=== PATIENT | male | born 1950 | race Caucasian/White ===

== ENCOUNTER 2016-06-06 06:40 | Inpatient (IN) | payer MEDICARE, OTHER ==
[2016-06-06] VITALS (13 sets, daily range): BP systolic 114–139; BP diastolic 69–83
[~2016-06-06] VITALS: Ht 203.2 cm; Wt 131.5 kg
[~2016-06-06 06:40] MED LIST: METOPROLOL SUCC50 MG ORAL; NITROFURANTOIN100 MG PO; RAPAFLO8 MG ORAL; TESTOSTERONE GEL TOPIC
--- NOTE | 2016-06-06 07:45 | Pre-Procedure Note/Attestation ---
Pre-Procedure Note/Attestation Complete Prior to Procedure Planned Procedure: not applicable Procedure Narrative: TURP Indications for Procedure Pre-Operative Diagnosis: retention bph Attestation I attest that I discussed the nature of the procedure; its benefits; risks and complications; and alternatives (and the risks and benefits of such alternatives ), prior to the procedure, with the patient (or the patient's legal retail service representative). I attest that, if there was a reasonable possibility of needing a blood transfusion, the patient (or the patient's legal retail service representative) was given the [facility] standardized written summary, pursuant to the Antonio Keara Blood Safety Act ([place] Health and Safety Code # 1645, as amended). I attest that I re-evaluated the patient just prior to the surgery and that there has been no change in the patient's H&P, except as documented below: Rick Solis MD Jun 06, 2016 07:44
[2016-06-06] MEDS ORDERED: ceFAZolin sod 1 GM in NS 55 ML IVPB ONE (08:00)
--- NOTE | 2016-06-06 08:57 | Anethesia Preoperative Eval ---
Anesthesia Pre-op PMH/ROS General Date of Evaluation: Jun 06, 2016 Time of Evaluation: 09:44 Anesthesiologist: Shawn ASA Score: ASA 3 Mallampati Score Class I : Soft palate, uvula, fauces, pillars visible Class II: Soft palate, uvula, fauces visible Class III: Soft palate, base of uvula visible Class IV: Only hard plate visible Mallampati Classification: Class II Surgeon: Irma Diagnosis: BPH Surgical Procedure: TURP Anesthesia History: none Family History: no anesthesia problems Allergies: Coded Allergies: No Known Allergies (Unverified , 06/05/16) Medications: see eMAR Past Medical History Cardiovascular: Reports: HTN, arrhythmia - PVcs Gastrointestinal/Genitourinary: Reports: other - BPH, Murillo Neurologic/Psychiatric: Reports: other - Seizures Other: obesity - BMI 32 PSxH Narrative: Gynecomastia Correction, R Shoulder SX, Spine Sx Anesthesia Pre-op Phys. Exam Physician Exam Last Vital Signs Date Time Temp Pulse Resp B/P Pulse Ox O2 Delivery O2 Flow Rate FiO2 06/06/16 07:28 97.0 53 18 123/74 98 Room Air Constitutional: NAD Neurologic: CN 2-12 intact Cardiovascular: RRR Respiratory: CTA Gastrointestinal: S/NT/ND Airway Exam Mallampati Score: Class II MO: full ROM: limited Teeth: intact Anesthesia Pre-op A/P Risk Assessment & Plan Assessment: ASA 3 Plan: GA, BIS Glidescope Status Change Before Surgery: No Pre-Antibiotics Dru Grams Ancef IV Given Within 1 Hr of Incision: Yes Time Given: 09:51 Jak Escobar MD Jun 06, 2016 08:57
[2016-06-06] MEDS ORDERED: fentaNYL 100 mcg/2 mL IV ONE (10:00)
[2016-06-06] MEDS ORDERED: NS Irrig 4000ml IRRIG ONE ×2 (10:00→10:19)
[2016-06-06] MEDS ORDERED: Propofol 10mg/ml 20ml IV ONE (10:00)
[2016-06-06] MEDS ORDERED: Dexamethasone 4mg/ml vial ONE (10:00)
[2016-06-06] MEDS ORDERED: Neostigmine 1mg/ml 10ml Inj ONE (10:00)
[2016-06-06] MEDS ORDERED: Glycopyrrolate 0.2mg/ml 1ml Vial ONE (10:00)
[2016-06-06] MEDS ORDERED: Alfentanil 2ml Inj ONE (10:00)
[2016-06-06] MEDS ORDERED: Lidocaine 1% MPF 10mg/ml 5ml ONE (10:00)
[2016-06-06] MEDS ORDERED: NS Irrig 1000ml ONE (10:00)
[2016-06-06] MEDS ORDERED: Midazolam 2mg/2ml Inj ONE (10:00)
[2016-06-06] MEDS ORDERED: Sterile Water Irrig 1000ml IRRIG ONE (10:00)
[2016-06-06] MEDS ORDERED: LR 1000ml ONE (10:00)
[2016-06-06] MEDS ORDERED: Zemuron 50mg/5ml Inj IV ONE (10:00)
--- NOTE | 2016-06-06 10:02 | Brief Operative Note ---
Immediate Post Operative Note Operative Note Pre-op Diagnosis: retention bph Procedure: TURP SP tube placement Post-op Diagnosis: same Surgeon: Hussein Solis Anesthesia: general Specimen: yes Complications: none Condition: stable Estimated Blood Loss: minimal Implant(s) used?: No Rick Solis MD Jun 06, 2016 10:02
[2016-06-06] MEDS ORDERED: NS Irrig 2000ml IRRIG ONE (10:19)
[2016-06-06] MEDS ORDERED: LR 1000ml 1,000 ML IVLG SCH (10:27)
[2016-06-06] MEDS ORDERED: DiphenhydrAMINE 50mg/ml Inj IVP PRN (10:30)
[2016-06-06] MEDS ORDERED: LORazepam Inj 2mg/ml 1ml IV PRN (10:30)
[2016-06-06] MEDS ORDERED: fentaNYL 100 mcg/2 mL IV PRN (10:30)
[2016-06-06] MEDS ORDERED: Hydromorphone 0.5mg/0.5ml inj IVP PRN (10:30)
[2016-06-06] MEDS ORDERED: Norco 7.5mg/325mg tab ORAL PRN (10:30)
[2016-06-06] MEDS ORDERED: Metoclopramide 10mg/2ml Inj IVP PRN (10:30)
[2016-06-06] MEDS ORDERED: Meperidine 25mg/ml Inj IV PRN (10:30)
[2016-06-06] MEDS ORDERED: Midazolam 2mg/2ml Inj IVP PRN (10:30)
[2016-06-06] MEDS ORDERED: Oxycodone/Acetaminophen 5-325 ORAL PRN (10:30)
[2016-06-06] MEDS ORDERED: Atropine Inj 1mg/10ml Syr IV PRN (10:30)
[2016-06-06] MEDS ORDERED: Norco 5mg/325mg tab ORAL PRN (10:30)
[2016-06-06] MEDS ORDERED: Ketorolac 60mg Inj IV PRN (10:30)
[2016-06-06] MEDS ORDERED: Ketorolac 30mg Inj IV PRN (10:30)
[2016-06-06] MEDS ORDERED: Labetalol 5mg/ml 20ml vial IV PRN (10:30)
--- NOTE | 2016-06-06 10:30 | Immediate Post-Op Evaluation ---
Immediate Post-Op Evalulation Immediate Post-Op Evalulation Procedure: TURP Date of Evaluation: Jun 06, 2016 Time of Evaluation: 11:54 IV Fluids: 1200 LR Blood Products: 0 Estimated Blood Loss: 75 Urinary Output: 0 Blood Pressure Systolic: 137 Blood Pressure Diastolic: 83 Pulse Rate: 62 Respiratory Rate: 16 O2 Sat by Pulse Oximetry: 98 Temperature (Fahrenheit): 97.3 Pain Score (1-10): 2 Nausea: No Vomiting: No Complications 0 Patient Status: awake, reacts, patent, extubated, none Hydration Status: adequate Dru Grams Ancef IV Given Within 1 Hr of Incision: Yes Time Given: 09:51 Jak Escobar MD Jun 06, 2016 10:30
[2016-06-06] MEDS ORDERED: Acetaminophen (Non formulary) 100 ML IV ONE (10:45)
[2016-06-06 13:07] LABS: BASOPHILS % (AUTO) 0.6 % (0.0-2.0); EOSINOPHILS % (AUTO) 2.4 % (0.0-3.0); MEAN CORPUSCULAR HEMOGLOBIN 32.1 PG (27.0-31.0); MEAN CORPUSCULAR VOLUME 94 FL (80-99); MEAN PLATELET VOLUME 6.7 FL (6.5-10.1); MONOCYTES % (AUTO) 3.6 % (1.0-10.0); NEUTROPHILS % (AUTO) 77.5 % (45.0-75.0); PLATELET COUNT 147 K/UL (150-450); RED BLOOD COUNT 3.93 M/UL (4.70-6.10); RED CELL DISTRIBUTION WIDTH 11.5 % (11.6-14.8); WHITE BLOOD COUNT 5.2 K/UL (4.8-10.8)
[2016-06-06 13:17] LABS: ANION GAP 12 (5-15); CALCIUM 8.4 mg/dL (8.6-10.2); CARBON DIOXIDE 27 mEQ/L (20-30); CHLORIDE 103 mEQ/L (98-107); CREATININE 1.1 mg/dL (0.7-1.2); GLOMERULAR FILTRATION RATE > 60 mL/min (>60); HEMOLYSIS 5; POTASSIUM 4.6 mEQ/L (3.4-4.9); SODIUM 142 mEQ/L (135-145)
[2016-06-06] MEDS: Norco 5mg/325mg tab ORAL PRN (14:25)
[2016-06-06] MEDS ORDERED: D5 1/2NS w/KCl 20mEq 1,000 ML IV SCH (16:00)
[2016-06-06] MEDS: ceFAZolin sod 2 GM in D5W 110 ML IV SCH (19:03)
[2016-06-06] MEDS: HYDROmorphone 1mg/ml Carpuject IVP PRN (19:03)
[2016-06-06] MEDS: Docusate 100mg cap ORAL SCH (19:03)
[2016-06-07] VITALS: BP 127/83
[2016-06-07] MEDS: Norco 5mg/325mg tab ORAL PRN (00:53)
[2016-06-07] MEDS: ceFAZolin sod 2 GM in D5W 110 ML IV SCH (02:09)
[2016-06-07 04:00] VITALS: BP 106/66
[2016-06-07 07:28] LABS: BASOPHILS % (AUTO) 0.2 % (0.0-2.0); EOSINOPHILS % (AUTO) 0.1 % (0.0-3.0); LYMPHOCYTES % (AUTO) 10.1 % (20.0-45.0); MEAN CORPUSCULAR HEMOGLOBIN 32.1 PG (27.0-31.0); MEAN CORPUSCULAR HGB CONC 34.1 G/DL (32.0-36.0); MEAN CORPUSCULAR VOLUME 94 FL (80-99); MEAN PLATELET VOLUME 6.9 FL (6.5-10.1); MONOCYTES % (AUTO) 6.8 % (1.0-10.0); NEUTROPHILS % (AUTO) 82.9 % (45.0-75.0); PLATELET COUNT 165 K/UL (150-450); RED BLOOD COUNT 3.92 M/UL (4.70-6.10); RED CELL DISTRIBUTION WIDTH 11.6 % (11.6-14.8); WHITE BLOOD COUNT 10.8 K/UL (4.8-10.8)
[2016-06-07 07:35] LABS: ANION GAP 12 (5-15); CALCIUM 8.7 mg/dL (8.6-10.2); CARBON DIOXIDE 26 mEQ/L (20-30); CHLORIDE 103 mEQ/L (98-107); CREATININE 1.1 mg/dL (0.7-1.2); GLOMERULAR FILTRATION RATE > 60 mL/min (>60); HEMOLYSIS 12; POTASSIUM 4.4 mEQ/L (3.4-4.9); SODIUM 141 mEQ/L (135-145)
[2016-06-07 08:00] VITALS: BP 120/72
--- NOTE | 2016-06-07 08:51 | 48 Hour Post Anesthesia Eval ---
Post Anesthesia Evaluation Procedure: TURP Date of Evaluation: Jun 07, 2016 Time of Evaluation: 07:00 Blood Pressure Systolic: 106 0: 66 Pulse Rate: 51 Respiratory Rate: 16 Temperature (Fahrenheit): 96.8 O2 Sat by Pulse Oximetry: 97 Airway: patent Nausea: No Vomiting: No Pain Intensity: 2 Hydration Status: adequate Cardiopulmonary Status: at baseline Mental Status/LOC: patient returned to baseline Post-Anesthesia Complications: 0 Follow-up care needed: N/A - further care as per primary team DALLAS RUDOLPH M.D. Jun 07, 2016 08:51
[2016-06-07] MEDS: Levofloxacin 500mg tab ORAL SCH (09:50)
[2016-06-07] MEDS: Docusate 100mg cap ORAL SCH ×2 (09:50→18:01)
[2016-06-07] MEDS: Milk of Magnesia 30ml Ud ORAL PRN (09:51)
[2016-06-07 12:00] VITALS: BP 147/86
[2016-06-07] MEDS: Hydrogen Peroxide 120ml Bottle TOPIC SCH (13:56)
[2016-06-07] MEDS: HYDROmorphone 1mg/ml Carpuject IVP PRN (14:03)
[2016-06-07 16:00] VITALS: BP 149/77
[2016-06-07 20:00] VITALS: BP 92/40
[2016-06-07] MEDS ORDERED: Tamsulosin 0.4mg cap ORAL SCH (21:00)
--- NOTE | 2016-06-08 00:08 | Operative Note - Dictated ---
DATE OF OPERATION: 06/06/2016 PREOPERATIVE DIAGNOSES: 1. Urinary retention. 2. Benign prostatic hypertrophy . POSTOPERATIVE DIAGNOSES: 1. Urinary retention. 2. Benign prostatic hypertrophy. OPERATION: Transurethral resection of the prostate SURGEON: Dr. Rick Solis. ANESTHESIA: General. FINDINGS: Enlarged prostate bladder. Indications For Surgery: The patient had been suffering from BPH and urinary retention failed voiding trails. Treatment options were explained to him in great length including all potential complications 00:47 he agreed with the above procedure and signed the consent form. Understands all potential complications. He was brought to the operating room, placed in lithotomy position, prepped and draped in standard fashion. Old catheter was removed and the resectoscope was introduced into the bladder. Prostate was enlarged 01:03 hypertrophy using the resectoscope 01:11 resected and removed with the Gail evacuator. Foreskin of the prostate was fulgurated with the button electrode. Procedure was terminated 01:25 three-way Murillo catheter. The patient tolerated the procedure well. Estimated blood loss approximately 50 mL. Rcik Solis M.D. DR: Jillian JOB#: [id number] CC:
[2016-06-08 00:52] VITALS: BP 92/45
[2016-06-08 04:00] VITALS: BP 97/61
[2016-06-08 08:00] VITALS: BP 98/50
[2016-06-08] MEDS: Levofloxacin 500mg tab ORAL SCH (08:56)
[2016-06-08] MEDS: Milk of Magnesia 30ml Ud ORAL PRN (08:56)
[2016-06-08] MEDS: Hydrogen Peroxide 120ml Bottle TOPIC SCH (08:57)
[2016-06-08] MEDS: Docusate 100mg cap ORAL SCH (08:57)
[2016-06-08 12:00] VITALS: BP 116/68
[2016-06-08] MEDS ORDERED: Sterile Water Irrig 1000ml IRRIG ONE (14:33)
[2016-06-08] MEDS ORDERED: Tubing IV Secondary IV ONE (14:33)
[2016-06-08] MEDS ORDERED: NS Irrig 4000ml IRRIG ONE (14:33)
--- NOTE | 2016-06-11 09:02 | Discharge Summary ---
Discharge Summary Hospital Course Date of Admission Jun 06, 2016 at 06:40 Date of Discharge Jun 08, 2016 at 14:34 Admitting Diagnosis urinary retention, enlarged prostate Reason for Hospitalization: elective surgery - TURP HPI 66 year old male who was admitted on Jun 06, 2016 at 06:40 for urinary retention , enlarged prostate for elective surgery - TURP, which he undergone later that day . Procedures 06/06 17 - Transurethral resection of the prostate - dr Solis [facility] Course post op course of recovery uneventful 3 way Murillo with CBI and manual irrigation prn until no clots pain management prophylactic antibiotics bowel regimen prostate tissue biopsy c/w BPH afebrile, no leukocytosis tolerates diet ambulates Murillo dc cleared for dc home on Rapalfo 8 mg po daily fup with urologist as advised by MD DISCHARGE DIAGNOSES urinary retention BPH s/p TURP Discharge Medications Continued Medications: Silodosin (Rapaflo) 8 Mg Capsule 8 MG ORAL DAILY, CAP Discharge Condition Upon Discharge: stable Discharge Disposition Patient was discharged to Home (01) Discharge Diagnoses: Discharge Instructions Discharge Instructions Special Instructions I have been assigned to complete a D/C Summary on this account. I was not involved in the patient management Nancy Rojas NP (Vanchtein) Jun 11, 2016 09:02
== END 2016-06-08 14:34 | disposition home or self-care (01) | DRG 714 ==
LOC: SDSOVERFLO 06:40 → 3E 12:30
PROC: 0VT08ZZ Resection of Prostate, Via Natural or Artificial Opening Endoscopic (ICD-10-PCS; principal; 2016-06-06 09:00)
DX: N40.1 Benign prostatic hyperplasia with lower urinary tract symptoms (principal); G62.9 Polyneuropathy, unspecified; R33.8 Other retention of urine; R35.1 Nocturia; E66.9 Obesity, unspecified; Z68.31 Body mass index [BMI] 31.0-31.9, adult; Z87.891 Personal history of nicotine dependence; I49.1 Atrial premature depolarization
CPT/HCPCS: 36415; 80048; 85025; 86850; 86900; 86901; 87081; 94003; 94150; J2180; J2250; J2405; J2710; J3490